=== PATIENT | male | born 1985 | race Caucasian/White ===

== ENCOUNTER 2016-05-20 08:22 | Emergency (ER) | payer SELFPAY ==
[~2016-05-20] VITALS: Ht 182.9 cm; Wt 90.0 kg
[~2016-05-20 08:22] MED LIST: SULF-154 PO
[2016-05-20 08:24] VITALS: BP 167/85; PULSE 101; RESP 16; TEMP 98.2; O2SAT 98
== END 2016-05-20 09:48 | disposition left against medical advice (07) ==
LOC: NED 08:22
DX: R50.9 Fever, unspecified (principal)
CPT/HCPCS: 99281

== ENCOUNTER 2016-06-21 17:52 | Emergency (ER) | payer SELFPAY ==
[~2016-06-21] VITALS: Ht 180.3 cm; Wt 90.0 kg
[2016-06-21 17:54] VITALS: BP 170/100; PULSE 88; RESP 20; TEMP 97.8; O2SAT 98
--- NOTE | 2016-06-21 17:56 | PD ---
Physical Exam Date Seen by Provider: Jun 21, 2016 Time Seen by Provider: 17:55 Narrative 30 yo male that presents to the ED for evaluation of sinus pain and dental pain. Has had this for a few weeks. Pain is 8/10. Nothing makes it better or worst. Has not seen anybody for this. No chest pain. Vitals sign stable. Patient awaiting bed placement. Data Data Last Documented VS Vital Signs Date Time Temp Pulse Resp B/P Pulse Ox O2 Delivery O2 Flow Rate FiO2 06/21/16 17:54 97.8 88 20 170/100 98 Room Air [facility] Medical Record Reviewed: Yes Supervised Visit with JAMES: No Dewey Boyle Jun 21, 2016 17:56
[2016-06-21] MEDS ORDERED: AZIT500T2 PO (18:19)
[2016-06-21] MEDS ORDERED: ALBUAER3 INH (18:19)
--- NOTE | 2016-06-21 18:19 | PD ---
HPI Chief Complaint: ENT Complaint Time Seen by Provider: 18:18 Travel History International Travel<30 days: No Contact w/Intl Traveler<30days: No Traveled to known affect area: No History of Present Illness HPI 30-year-old male presents to the emergency Department with complaint of cough, nasal congestion, sinus pressure, sore throat times one week. He says he has been sick on and off for the last 2-3 months. His worst symptom is cough. He reports chest tightness, feeling short of breath at times secondary to cough exacerbations, and coughing up green/yellow phlegm. Denies ear pain. Denies fever, vomiting. Reports tobacco use daily. Denies history of asthma. Has taken multiple [id number] cold and cough medications with no relief of symptoms. Others at his work have been consistently sick for the past few months to. No known allergies. Has no other medical complaints. No other modifying factors or associated signs and symptoms. PFSH Social History Alcohol Use: Yes (beer and whiskey daily) Tobacco Use: Yes (1ppd) Substance Use: Yes (marijuana) Allergies-Medications (Allergen,Severity, Reaction): Coded Allergies: No Known Allergies (Unverified , 01/29/15) Reported Meds & Prescriptions Reported Meds & Active Scripts Active Deltasone (Prednisone) 20 Mg Tab 40 Mg PO DAILY 4 Days start 06/22/2016 Ibuprofen 800 Mg Tab 800 Mg PO Q6HR PRN Tessalon Perles (Benzonatate) 100 Mg Cap 100 Mg PO TID PRN Proair Hfa 8.5 GM Inh (Albuterol Sulfate) 90 Mcg/Act Aer 2 Puff INH Q4-6H PRN 108 mcg/actuation Azithromycin 500 Mg Tab 500 Mg PO DAILY Review of Systems Except as stated in HPI: all other systems reviewed are Neg Physical Exam Narrative GENERAL: Well-nourished, well-developed male patient, in no acute distress SKIN: Warm and moist. HEAD: Atraumatic. Normocephalic. EYES: Pupils equal and round at 3 mm with brisk reaction. No scleral icterus. No injection or drainage. PERRLA. EOMI. ENT: Mucosa pink and moist. No erythema or exudates. No uvular edema. No uvular , palatal, or tonsillar deviation. Airway patent. EARS: Bilateral pinnae and external canals appear within normal limits. Bilateral tympanic membranes without erythema, dullness or perforation. NECK: Trachea midline. No lymphadenopathy. CARDIOVASCULAR: Regular rate and rhythm. No murmur appreciated. RESPIRATORY: No accessory muscle use. Clear to auscultation and slightly decreased to bilateral bases. Breath sounds equal bilaterally. Moist, productive cough noted during physical exam. GASTROINTESTINAL: Abdomen soft, non-tender, nondistended. Hepatic and splenic margins not palpable. Bowel sounds are active 4 quadrants. MUSCULOSKELETAL: No obvious deformities. No clubbing. No cyanosis. No edema. NEUROLOGICAL: Awake and alert. Oriented 3. No obvious cranial nerve deficits. Motor grossly within normal limits. Normal speech. Moves all extremities. 5/5 strength to all extremities. PSYCHIATRIC: Appropriate mood and affect; insight and judgment normal. Data Data Last Documented VS Vital Signs Date Time Temp Pulse Resp B/P Pulse Ox O2 Delivery O2 Flow Rate FiO2 06/21/16 17:54 97.8 88 20 170/100 98 Room Air Orders Prednisone (Deltasone) (06/21/16 18:30) Albuterol Neb (Albuterol Neb) (06/21/16 18:30) MDM Medical Decision Making Medical Screen Exam Complete: Yes Emergency Medical Condition: Yes Medical Record Reviewed: Yes Differential Diagnosis Upper respiratory infection, sinusitis, strep pharyngitis, bronchitis, pneumonia Narrative Course 30-year-old male physical examination consistent with upper respiratory infection and bronchitis. He's been sick for a week. He's been sick with similar symptoms on and off for 2-3 months. He is afebrile and nontoxic- appearing. He is in no acute distress without retractions or tachypnea. Oxygen saturation is 98% on room air. He is complaining of chest tightness and shortness of breath with coughing exacerbations. He does have a moist, productive cough during physical exam. Lungs are clear and equal with decreased lung sounds in bilateral bases. Albuterol nebulizer ordered. Deltasone ordered. 185: On reexamination the patient reports improvement in symptoms. He denies chest tightness or shortness of breath. Lungs are clear and equal throughout with improved lung sounds in bilateral bases. Pro-air inhaler, Deltasone, Tessalon Perles, azithromycin, ibuprofen prescribed for home. Patient verbalizes understanding and agreement with treatment plan. Patient is medically cleared and stable for discharge. Discussed reasons to return to the emergency department. Instructed patient to follow up with primary care provider. Patient agrees with treatment plan. The patients vital signs are stable and the patient is stable for outpatient follow-up and treatment. Patient discharged home, stable and in no acute distress. Diagnosis Primary Impression: Bronchitis Additional Impression: Upper respiratory infection Qualified Code: J06.9 - Upper respiratory tract infection, unspecified type Referrals: Primary Care Physician Patient Instructions: Acute Bronchitis (ED), General Instructions, Safe Use of Cough and Cold Medicines (ED), Upper Respiratory Infection (ED) Departure Forms: Tests/Procedures, Work Release Enter return to work date: Jun 23, 2016 Additional Instructions: Use Albuterol inhaler as prescribed Take oral steroids as prescribed and complete full course Use Tessalon Perles as prescribed to decrease coughing spasms Yljg-[id number] decongestants or antihistamines as directed and as needed for symptom management Your cough can last 4-6 weeks Drink plenty of fluids to prevent dehydration Use hot air humidifier to decrease cough exacerbation Turn off ceiling fans and sleep with head of bed elevated Avoid triggers such as second hand smoke, dust, known allergens Follow-up with your primary care provider Return to the emergency department immediately with worsening of symptoms Med/Other Pt SpecificInfo: Prescription(s) given Scripts Prednisone (Deltasone)20 Mg Tab40 Mg PO DAILY 4 Days Ref 0 start 06/22/2016 Prov:Alicia Farfan 06/21/16 Ibuprofen 800 Mg [id number] Mg PO Q6HR PRN (PAIN) #30 TAB Ref 0 Prov:Alicia Farfan 06/21/16 Benzonatate (Tessalon Perles)100 Mg [id number] Mg PO TID PRN (COUGH) #20 CAP Ref 0 Prov:Alicia Farfan 06/21/16 Albuterol 8.5 GM Inh (Proair Hfa 8.5 GM Inh)90 Mcg/Act Aer2 Puff INH Q4-6H PRN ( SOB/WHEEZING) #1 INHALER Ref 0 108 mcg/actuation Prov:Alicia Farfan 06/21/16 Azithromycin 500 Mg [id number] Mg PO DAILY #5 TAB Ref 0 Prov:Alicia Farfan 06/21/16 Disposition: 01 DISCHARGE HOME Condition: Stable Alicia Farfan Jun 21, 2016 18:19 Alicia Farfan [facility] Jun 21, 2016 18:19
[2016-06-21] MEDS ORDERED: IBUP800T23 PO (18:22)
[2016-06-21] MEDS ORDERED: PRED-503 PO (18:22)
[2016-06-21] MEDS ORDERED: BENZ100 PO (18:22)
[2016-06-21] MEDS ORDERED: RESP: ALBUTEROL 2.5 MG/3 ML NEB (SCH) INH ONE (18:30)
[2016-06-21] MEDS ORDERED: predniSONE 20 MG TAB PO ONE (18:30)
== END 2016-06-21 19:06 | disposition home or self-care (01) ==
LOC: NEPK 17:52
DX: J40 Bronchitis, not specified as acute or chronic (principal); J06.9 Acute upper respiratory infection, unspecified; F17.210 Nicotine dependence, cigarettes, uncomplicated; F10.10 Alcohol abuse, uncomplicated; F12.10 Cannabis abuse, uncomplicated
CPT/HCPCS: 94664; 99282; J7512; J7613